=== PATIENT | female | born 1980 | race Caucasian/White ===

== ENCOUNTER 2016-10-22 12:32 | Emergency (ER) | payer BC, OTHER ==
[2016-10-22 14:56] LABS: HEMOGLOBIN 13.6 gm/dl (12.3-15.3); RED BLOOD COUNT 4.73 M/UL (4.00-5.10); WHITE BLOOD COUNT 6.9 K/UL (4.5-11.0)
[2016-10-22 15:22] LABS: BUN/CREATININE RATIO 13 (0-10)
== END 2016-10-22 19:10 | disposition home or self-care (01) ==
LOC: ER1 12:32
PROVIDERS: Emergency Medicine
DX: R10.12 Left upper quadrant pain (principal); R10.32 Left lower quadrant pain; R51 Headache; R19.7 Diarrhea, unspecified; Z88.2 Allergy status to sulfonamides; Z88.8 Allergy status to other drugs, medicaments and biological substances
CPT/HCPCS: 36415; 80053; 81001; 82150; 83690; 85025; 99284; J2270; J2405; J7030; J7050; Q9962

== ENCOUNTER → 2016-10-23 | Outpatient (CLI) | payer BC, OTHER | LOC: RAD 13:57 | DX: R07.9 Chest pain, unspecified (principal); R19.7 Diarrhea, unspecified; R06.00 Dyspnea, unspecified | CPT/HCPCS: 71020 ==

== ENCOUNTER → 2016-11-06 | Outpatient (CLI) | payer BC, OTHER | LOC: EMI 11:00 | DX: G43.909 Migraine, unspecified, not intractable, without status migrainosus (principal) | CPT/HCPCS: 70553; A9577; J7050 ==

== ENCOUNTER → 2020-07-30 | Outpatient (CLI) | payer OTHER ==
[~2020-07-30] MED LIST: AJOVY225 MG/1.5 SQ; AMMONIUM LACTA225 GM TOP; ASPIRIN81 MG PO; AUGMENTIN 875-1 EACH PO; AZELASTINE HCL6 ML OU; BRINTELLIX10 MG PO; BUTALB-ACETAMI1 EAC1 PO; COLESTID1 GM PO; COLESTIPOL HCL1 GM PO; COMPAZINE10 MG PO; DEPAKOTE 250 M250 MG PO; DEPAKOTE500 MG PO; DILTIAZEM 24HR180 M1 PO; ELAVIL 50 MG TA50 MG PO; FOLIC ACID 1 MG1 MG PO; FOLIC ACID1 MG PO; HYDROXYCHLOROQ200 MG PO; IMODIUM CAP 2 MG2 MG PO; LASIX20 MG PO; LASIX40 MG PO; LEFLUNOMIDE20 MG PO; MELOXICAM15 MG PO; METHOCARBAMOL500 MG PO; METHOTREXATE25 MG/ML SQ; MIRALAX17 GM PO; NORCO 7.5-3251 EACH PO; NORFLEX 100 MG100 MG PO; NORVASC 5 MG TAB5 MG PO; OMEPRAZOLE40 MG PO; ONDANSETRON ODT8 MG PO; PEPCID40 MG PO; PHYSICIANS1000 MCG/1 INJ; PLAQUENIL 200200 MG PO; RESTORIL15 MG PO; SINGULAIR10 MG PO; SYNTHROID112 MCG PO; TOLTERODINE TART2 M1 PO; VALACYCLOVIR1000 MG PO; VALTREX1000 MG PO; Voltaren Gel 1 % TOP; XYZAL5 MG PO; ZANTAC150 MG PO; ZESTRIL5 MG PO; ZOFRAN ODT 4 MG4 MG SL; ZOFRAN4 MG PO
== END ==
LOC: HEART 5 13:58
DX: R55 Syncope and collapse (principal); R00.2 Palpitations; R00.0 Tachycardia, unspecified

== ENCOUNTER → 2020-08-12 | Outpatient (CLI) | payer OTHER ==
[~2020-08-12] VITALS: Ht 165.1 cm; Wt 109.8 kg
== END ==
LOC: OPSV 14:00
DX: L40.50 Arthropathic psoriasis, unspecified (principal)
CPT/HCPCS: 96365; 96375; J1602; J2920

== ENCOUNTER → 2020-09-09 | Outpatient (CLI) | payer OTHER ==
[~2020-09-09] VITALS: Ht 165.1 cm; Wt 109.8 kg
== END ==
LOC: OPSV 10:00
DX: L40.50 Arthropathic psoriasis, unspecified (principal)
CPT/HCPCS: 96365; 96375; J1602; J2920

== ENCOUNTER → 2020-09-10 | Outpatient (CLI) | payer OTHER | LOC: KOH-I 08:23 | DX: M54.2 Cervicalgia (principal); M25.50 Pain in unspecified joint; M79.644 Pain in right finger(s); M25.78 Osteophyte, vertebrae | CPT/HCPCS: 72040; 73120 ==

== ENCOUNTER 2020-10-14 15:37 | Emergency (ER) | payer OTHER ==
[~2020-10-14 15:37] MED LIST changes: -AUGMENTIN 875-1 EACH PO
[2020-10-14 17:01] LABS: RED BLOOD COUNT 4.56 M/UL (4.00-5.10); WHITE BLOOD COUNT 12.3 K/UL (4.5-11.0)
[2020-10-14 17:31] LABS: BUN/CREATININE RATIO 14 (0-10)
[2020-10-14] MEDS ORDERED: AUGMENTIN 875-1 EACH PO (18:41)
[2020-10-14] MEDS ORDERED: ZOFRAN4 MG PO (18:41)
== END 2020-10-14 19:35 | disposition home or self-care (01) ==
LOC: ER1 15:37
PROVIDERS: Physician Assistant
DX: K57.32 Diverticulitis of large intestine without perforation or abscess without bleeding (principal); Z90.710 Acquired absence of both cervix and uterus; Z88.5 Allergy status to narcotic agent; Z88.8 Allergy status to other drugs, medicaments and biological substances
CPT/HCPCS: 80053; 81001; 85025; 96374; 96375; 99284; J2405; Q9967

== ENCOUNTER → 2020-11-06 | Outpatient (CLI) | payer OTHER ==
[~2020-11-06] VITALS: Ht 165.1 cm; Wt 109.8 kg
[~2020-11-06] MED LIST changes: +AUGMENTIN 875-1 EACH PO
== END ==
LOC: OPSV 11-04 11:00
DX: L40.50 Arthropathic psoriasis, unspecified (principal)
CPT/HCPCS: 96365; 96375; J1602; J2920

== ENCOUNTER → 2021-01-01 | Outpatient (CLI) | payer OTHER | LOC: OPSV 11:00 | DX: L40.50 Arthropathic psoriasis, unspecified (principal) | CPT/HCPCS: 96365; 96375; J1602; J2920 ==

== ENCOUNTER → 2021-02-26 | Outpatient (CLI) | payer OTHER ==
[~2021-02-26] VITALS: Ht 165.1 cm; Wt 109.8 kg
== END ==
LOC: OPSV 10:41
DX: L40.50 Arthropathic psoriasis, unspecified (principal)
CPT/HCPCS: 96365; 96375; J1602; J2920

== ENCOUNTER → 2021-03-18 | Outpatient (CLI) | payer OTHER | LOC: EXRD 13:27 | DX: R05 Cough (principal) | CPT/HCPCS: 71046 ==

== ENCOUNTER 2021-03-29 13:13 | Emergency (ER) | payer OTHER | END 2021-03-29 17:05 | disposition home or self-care (01) | LOC: ER1 13:13 | DX: Z23 Encounter for immunization (principal); U07.1 COVID-19; J45.909 Unspecified asthma, uncomplicated; Z90.49 Acquired absence of other specified parts of digestive tract; Z90.710 Acquired absence of both cervix and uterus | CPT/HCPCS: 99283; M0243 ==

== ENCOUNTER → 2021-04-09 | Outpatient (CLI) | payer OTHER | LOC: EXRD 08:23 | DX: U07.1 COVID-19 (principal) | CPT/HCPCS: 71046 ==

== ENCOUNTER → 2021-04-23 | Outpatient (CLI) | payer OTHER ==
[~2021-04-23] VITALS: Ht 165.1 cm; Wt 109.8 kg
== END ==
LOC: OPSV 10:53
DX: L40.50 Arthropathic psoriasis, unspecified (principal)
CPT/HCPCS: 96365; 96375; J1602; J2920

== ENCOUNTER → 2021-06-18 | Outpatient (CLI) | payer OTHER | LOC: OPSV 10:41 | DX: L40.50 Arthropathic psoriasis, unspecified (principal) | CPT/HCPCS: 96365; 96375; J1602; J2920 ==

== ENCOUNTER → 2021-07-09 | Outpatient (CLI) | payer OTHER | LOC: LBRF 16:01 | DX: R39.9 Unspecified symptoms and signs involving the genitourinary system (principal) | CPT/HCPCS: 87086 ==

== ENCOUNTER → 2021-07-10 | Outpatient (CLI) | payer OTHER | LOC: EXRD 09:14 | DX: R10.9 Unspecified abdominal pain (principal) | CPT/HCPCS: 74018 ==

== ENCOUNTER → 2021-08-04 | Outpatient (CLI) | payer OTHER ==
[~2021-08-04] VITALS: Ht 167.6 cm; Wt 103.9 kg
== END ==
LOC: EROP 12:17
DX: U07.1 COVID-19 (principal); Z23 Encounter for immunization
CPT/HCPCS: 96365

== ENCOUNTER → 2021-10-28 | Outpatient (CLI) | payer OTHER | LOC: EXRD 09:53 | DX: J20.9 Acute bronchitis, unspecified (principal); R07.9 Chest pain, unspecified; R05.9 Cough, unspecified | CPT/HCPCS: 71046 ==

== ENCOUNTER → 2022-01-26 | Outpatient (CLI) | payer OTHER ==
[~2022-01-26] VITALS: Ht 165.1 cm; Wt 109.8 kg
== END ==
LOC: OPSV 09:00
DX: L40.50 Arthropathic psoriasis, unspecified (principal)
CPT/HCPCS: 96365; 96375; J1602; J2920

== ENCOUNTER → 2022-02-27 | Outpatient (CLI) | payer OTHER | LOC: EMI 08:23 | DX: M51.16 Intervertebral disc disorders with radiculopathy, lumbar region (principal); R26.2 Difficulty in walking, not elsewhere classified; R15.9 Full incontinence of feces; R20.2 Paresthesia of skin; R32 Unspecified urinary incontinence | CPT/HCPCS: 72148 ==

== ENCOUNTER → 2022-03-05 | Outpatient (CLI) | payer OTHER | LOC: KOH-I 11:10 | DX: L02.234 Carbuncle of groin (principal); M51.26 Other intervertebral disc displacement, lumbar region; M51.37 Other intervertebral disc degeneration, lumbosacral region | CPT/HCPCS: 72131 ==

== ENCOUNTER → 2022-03-13 | Outpatient (CLI) | payer OTHER ==
[~2022-03-13] MED LIST changes: +AZELASTINE HCL6 ML EYEBOTH; +CRESTOR10 MG PO; +CYANOCOBAL1000 MCG/1 INJ; +ESTRADIOL1 EAC1 TOP; +GOLIMUMAB IV; +HYDROCODON-ACE1 EAC2 PO; +HYDROXYZINE HCL25 MG PO; +MUPIROCIN22 GM TOP; +NEURONTIN300 MG PO; +PROZAC40 MG PO; +SYNTHROID100 MCG PO; +WELLBUTRIN SR150 M1 PO
[2022-03-13 13:43] LABS: HEMOGLOBIN 11.9 gm/dl (12.3-15.3); RED BLOOD COUNT 4.14 M/UL (4.00-5.10)
[2022-03-13 14:02] LABS: BUN/CREATININE RATIO 20 (0-10)
== END ==
LOC: OPSV2 12:30 → EDSTATUS 12:30 → OPSV2 12:54
PROVIDERS: Orthopaedic Surgery
DX: Z01.818 Encounter for other preprocedural examination (principal); M54.16 Radiculopathy, lumbar region; M48.061 Spinal stenosis, lumbar region without neurogenic claudication
CPT/HCPCS: 36415; 71046; 80048; 81001; 85025; 85610; 85652; 85730; 86140; 87081; 93005

== ENCOUNTER → 2022-03-16 | Outpatient (CLI) | payer OTHER | LOC: LAB 09:04 | DX: Z01.812 Encounter for preprocedural laboratory examination (principal) | CPT/HCPCS: 36415; 86850; 86900; 86901 ==

== ENCOUNTER 2022-03-17 06:21 | Observation (INO) | payer OTHER ==
[~2022-03-17] VITALS: Ht 167.6 cm; Wt 99.8 kg
[~2022-03-17 06:21] MED LIST changes: -HYDROXYZINE HCL25 MG PO
[2022-03-17 13:45] LABS: RED BLOOD COUNT 4.18 M/UL (4.00-5.10); WHITE BLOOD COUNT 6.4 K/UL (4.5-11.0)
[2022-03-17 14:06] LABS: BUN/CREATININE RATIO 17 (0-10)
[2022-03-17] MEDS ORDERED: HYDROXYZINE HCL25 MG PO (16:28)
[2022-03-18 05:17] LABS: HEMOGLOBIN 10.8 gm/dl (12.3-15.3)
[2022-03-18 05:21] LABS: RED BLOOD COUNT 3.73 M/UL (4.00-5.10); WHITE BLOOD COUNT 10.6 K/UL (4.5-11.0)
[2022-03-18 05:44] LABS: BUN/CREATININE RATIO 22 (0-10)
[2022-03-19 04:28] LABS: HEMOGLOBIN 10.1 gm/dl (12.3-15.3); RED BLOOD COUNT 3.46 M/UL (4.00-5.10)
[2022-03-19 04:54] LABS: BUN/CREATININE RATIO 20 (0-10)
[2022-03-20 04:07] LABS: HEMOGLOBIN 9.8 gm/dl (12.3-15.3); RED BLOOD COUNT 3.38 M/UL (4.00-5.10); WHITE BLOOD COUNT 7.3 K/UL (4.5-11.0)
[2022-03-20 04:27] LABS: BUN/CREATININE RATIO 18 (0-10)
[2022-03-20] MEDS ORDERED: ROXICODONE5 MG PO (14:00)
--- NOTE | 2022-03-20 15:05 | NUR ---
NOTIFIED PT TO MAKE APPT AT [facility]ICE FOR 2 WEEKS FROM NOW. [facility] OFFICE WAS CLOSED. QUOC FROM [facility] TOLD THE PT TO CALL.
== END 2022-03-20 15:08 | disposition home or self-care (01) ==
LOC: OR 06:21 → CCU 14:30 → OR 03-19 15:59 → CCU 03-19 16:13
PROVIDERS: ADMIT Orthopaedic Surgery
DX: M51.17 Intervertebral disc disorders with radiculopathy, lumbosacral region (principal); M48.061 Spinal stenosis, lumbar region without neurogenic claudication; I10 Essential (primary) hypertension; K21.9 Gastro-esophageal reflux disease without esophagitis; L40.50 Arthropathic psoriasis, unspecified; E07.9 Disorder of thyroid, unspecified; F41.9 Anxiety disorder, unspecified; Z88.5 Allergy status to narcotic agent; Z88.8 Allergy status to other drugs, medicaments and biological substances
CPT/HCPCS: 36415; 72100; 76000; 80048; 83540; 83550; 83735; 85025; 85027; 96374; 97116; 97116-GP-CQ; 97162; 97166; 97535; C1713; C1762; G0378; J0690; J1040; J1100; J1170; J1885; J2001; J2250; J2370; J2405; J2704; J3010; J3370; J7040

== ENCOUNTER 2022-04-03 15:36 | Emergency (ER) | payer OTHER ==
[~2022-04-03 15:36] MED LIST changes: +HYDROXYZINE HCL25 MG PO; +ROXICODONE5 MG PO
[2022-04-03] MEDS ORDERED: BACTROBAN OINT22 GM EXT (18:06)
== END 2022-04-03 18:15 | disposition home or self-care (01) ==
LOC: ER1 15:36
DX: T81.49XA Infection following a procedure, other surgical site, initial encounter (principal); L03.311 Cellulitis of abdominal wall; I10 Essential (primary) hypertension; J45.909 Unspecified asthma, uncomplicated; Z90.49 Acquired absence of other specified parts of digestive tract
CPT/HCPCS: 99283

== ENCOUNTER → 2022-04-21 | Outpatient (CLI) | payer OTHER ==
[~2022-04-21] MED LIST changes: +BACTROBAN OINT22 GM EXT
[2022-04-21 13:39] LABS: HEMOGLOBIN 12.7 gm/dl (12.3-15.3); RED BLOOD COUNT 4.5 M/UL (4.00-5.10); WHITE BLOOD COUNT 7.8 K/UL (4.5-11.0)
[2022-04-21 14:04] LABS: BUN/CREATININE RATIO 18 (0-10)
[2022-04-22 07:12] LABS: COMPLEMENT C3, SERUM 136 mg/dL (82-167); RHEUMATOID ARTHRITIS FACTOR <10.0 IU/mL (<14.0)
[2022-04-22 09:14] LABS: HCV AB <0.1 (0.0-0.9); HEP BE AG Negative (Negative)
[2022-04-22 15:14] LABS: RNP ANTIBODIES 0.8 AI (0.0-0.9); SMITH ANTIBODIES <0.2 AI (0.0-0.9)
[2022-04-22 21:08] LABS: HEPATITIS C QUANTITATION HCV Not Detected IU/mL (.)
[2022-04-24 10:16] LABS: QUANTIFERON MITOGEN VALUE >10.00 IU/mL (.); QUANTIFERON NIL VALUE 0.01 IU/mL (.); QUANTIFERON TB1 AG VALUE 0.01 IU/mL (.); QUANTIFERON TB2 AG VALUE 0.01 IU/mL (.); QUANTIFERON-TB GOLD PLUS Negative (Negative)
== END ==
LOC: LAB 12:48
PROVIDERS: Nurse Practitioner Family
DX: M79.89 Other specified soft tissue disorders (principal); R76.8 Other specified abnormal immunological findings in serum; M25.50 Pain in unspecified joint; R87.1 Abnormal level of hormones in specimens from female genital organs; M32.9 Systemic lupus erythematosus, unspecified; R20.9 Unspecified disturbances of skin sensation; L40.50 Arthropathic psoriasis, unspecified; M54.16 Radiculopathy, lumbar region; G43.909 Migraine, unspecified, not intractable, without status migrainosus; M19.90 Unspecified osteoarthritis, unspecified site; M25.559 Pain in unspecified hip; R10.9 Unspecified abdominal pain; R89.9 Unspecified abnormal finding in specimens from other organs, systems and tissues
CPT/HCPCS: 36415; 80053; 85025; 85379; 86160; 86200; 86431; 86707; 86803; 87350; 87522

== ENCOUNTER → 2022-04-22 | Outpatient (CLI) | payer OTHER | LOC: EXRD 15:06 | DX: M79.604 Pain in right leg (principal); M79.605 Pain in left leg; M79.89 Other specified soft tissue disorders; R79.89 Other specified abnormal findings of blood chemistry | CPT/HCPCS: 93970 ==

== ENCOUNTER → 2022-04-27 | Outpatient (CLI) | payer OTHER ==
[~2022-04-27] MED LIST changes: +CYCLOBENZAPRINE10 MG PO; +MEDROL DOSEPAK 24 MG PO
== END ==
LOC: KOH-I 14:19
DX: M79.672 Pain in left foot (principal)
CPT/HCPCS: 73630

== ENCOUNTER 2022-04-28 14:09 | Emergency (ER) | payer OTHER ==
[~2022-04-28 14:09] MED LIST changes: -CYCLOBENZAPRINE10 MG PO; -MEDROL DOSEPAK 24 MG PO
[2022-04-28 14:58] LABS: HEMOGLOBIN 12.4 gm/dl (12.3-15.3); RED BLOOD COUNT 4.35 M/UL (4.00-5.10); WHITE BLOOD COUNT 5.5 K/UL (4.5-11.0)
[2022-04-28 16:14] LABS: BUN/CREATININE RATIO 11 (0-10)
[2022-04-28] MEDS ORDERED: CYCLOBENZAPRINE10 MG PO (16:43)
[2022-04-28] MEDS ORDERED: MEDROL DOSEPAK 24 MG PO (16:43)
== END 2022-04-28 17:50 | disposition home or self-care (01) ==
LOC: ER1 14:09
PROVIDERS: Physician Assistant
DX: G57.92 Unspecified mononeuropathy of left lower limb (principal); I10 Essential (primary) hypertension; Z88.5 Allergy status to narcotic agent; Z88.8 Allergy status to other drugs, medicaments and biological substances
CPT/HCPCS: 72132; 73630; 80053; 85025; 85652; 86140; 96372; 99284; J1100; Q9967

== ENCOUNTER → 2022-04-29 | Outpatient (CLI) | payer OTHER ==
[~2022-04-29] MED LIST changes: +CYCLOBENZAPRINE10 MG PO; +MEDROL DOSEPAK 24 MG PO
== END ==
LOC: OPSV 03-23 09:00
DX: L40.50 Arthropathic psoriasis, unspecified (principal)
CPT/HCPCS: 96365; J1602